=== PATIENT | female | born 1945 | race Caucasian/White ===

== ENCOUNTER 2024-05-18 14:36 | Emergency (ER) | payer MEDICARE, OTHER, SELFPAY ==
[2024-05-18 14:45] VITALS: BP 117/59; PULSE 77; RESP 16; TEMP 36.3; O2SAT 97; BMI 22.4
--- NOTE | 2024-05-18 17:04 | ED.BACK ---
HPI - Back Pain/Injury General Chief Complaint: Back Pain/Injury Stated Complaint: requesting mri for back Time Seen by Provider: 05/18/24 16:48 Source: patient History of Present Illness HPI Narrative: Patient is a 78-year-old female. Has had issues with low back/hip discomfort ever since she had 2 different traumas with the end of last year requiring surgery. She states she is weakness in her pelvis and she did fall a couple days ago. She has had increased discomfort in lower back since then. She has seen her primary doctor. Was on prednisone for short period of time. She stated that she did not think that prednisone was helping so she stopped taking the prednisone yesterday and overnight and today she was any increased pain. She did have x-rays after this fall a couple days ago but does not think that they were lumbar spine x-rays. No change in any urinary or bowel habits. No fevers. She was on tramadol that does not help her symptoms. She was told by her primary care doctor nurse to come to the emergency department for an MRI. Related Data Home Medications Medication Instructions Recorded Confirmed verapamil 180 mg tablet,extended 180 mg PO DAILY 05/12/24 05/17/24 release Previous Rx's Medication Instructions Recorded tramadol 50 mg tablet 50 mg PO TID PRN pain #20 tabs 05/17/24 cyclobenzaprine 10 mg tablet 10 mg PO TID PRN muscle spasm #21 05/18/24 tabs hydrocodone 5 mg-acetaminophen 325 1 tab PO Q8H PRN pain #14 tabs 05/18/24 mg tablet Allergies Allergy/AdvReac Type Severity Reaction Status Date / Time nitroglycerin AdvReac Intermediate Verified 05/18/24 14:59 Review of Systems Review of Systems ROS Unobtainable: All systems reviewed & are unremarkable except as noted in HPI and below Patient History Social History Smoking Status: Never smoker Smoking Status: Never smoker Substance Use Type: does not use Exam Initial Vital Signs Initial Vital Signs: Vital Signs Temperature 97.4 F L 05/18/24 14:45 Pulse Rate 77 05/18/24 14:45 Respiratory Rate 16 05/18/24 14:45 Blood Pressure 117/59 L 05/18/24 14:45 Pulse Oximetry 97 05/18/24 14:45 Oxygen Delivery Method Room Air 05/18/24 14:45 Const General: cooperative, comfortable and No ill appearing [facility] Head: normal to inspection and normocephalic Resp Effort & Inspection: normal respiratory effort Cardio Rate: regular rate Neuro General: patient alert, patient awake and moves all extremities Extrem Other: No gross deformities Course Orders Ordered: ED Orders 05/18/24 16:44 Urine Culture Stat Urine Microscopic Stat 05/18/24 17:03 XR lumbar spine 2-3V Stat Discontinued Medications Ondansetron HCl (Ondansetron 4 Mg/2 Ml Inj) 4 mg IV NOW PRN PRN Reason: Nausea And Vomiting Ondansetron HCl (Ondansetron 4 Mg Odt) 4 mg SL NOW PRN PRN Reason: Nausea And Vomiting Vital Signs Vital signs: Vital Signs - 8 hr 05/18/24 14:45 Temperature 97.4 F L Pulse Rate 77 Respiratory Rate 16 Blood Pressure 117/59 L Pulse Oximetry 97 Oxygen Delivery Method Room Air MDM - Back Pain/Injury Lab Data Labs: Lab Results 05/18/24 Range/Units 16:44 Urine RBC None seen (0-5/HPF) Urine WBC 0-1/hpf (0-5/HPF) Ur Squamous Epith Cells None seen (0-5/HPF) Amorphous Sediment 2+ Urine Bacteria Many (>30) H (None) Ur Culture Indicated? Specimen cultured Vol Urine Centrifuged 10ml (spun) Urine Dip Bedside Urine Glucose Negative Bedside Urine Bilirubin + 1 Bedside Urine Ketone +/- 5 Urine Specific [place] 1.030 Bedside Urine Occult Blood - Negative Bedside Urine pH 5.5 Bedside Urine Protein +/- 15 Bedside Urine Urobilinogen - Negative Bedside Urine Nitrite - Negative Bedside Urine Leukocytes + 70 Esterase Imaging Data Lumbar spine x-ray: Radiologist's Impression: PROCEDURE: XR LUMBAR SPINE 2-3V INDICATIONS: LBP after fall TECHNIQUE: 3 views of the lumbar spine were acquired. COMPARISON: None. FINDINGS: Bones: 5 [id number] vertebrae are present. Levoconvex lumbar scoliosis. Bones are demineralized, limiting evaluation. No acute vertebral body compression fracture identified. Multilevel degenerative disc disease. Partially visualized hardware in the bilateral hips. Soft tissues: Overlying bowel gas pattern is normal. No suspicious soft tissue calcifications. IMPRESSION: No acute bony abnormality. If symptoms persist with conservative management, consider cross-sectional imaging such as CT or MRI. [facility] Narrative Medical decision making narrative: Lumbar spine x-ray today shows no acute pathology. Low suspicion for cauda equina/fracture/hematoma/abscess. Unfortunately unable to obtain an MRI on in the emergency department today. She most likely will need an MRI but this can be done as an outpatient through her primary doctor. Will give a prescription for muscle relaxers however the this does not help her symptoms she was stop taking them. We will also change her pain medication. She understands this can make her constipated so she will take stool softeners as needed. Follow-up with primary provider. She expressed understanding and agreement. Discharge Plan Departure Patient Disposition: Home Clinical Impression: Lumbar back pain Instructions: DI for Low Back Pain Activity Restrictions/Additional Instructions: You can walk as tolerated. Recommend that you continue with anti-inflammatories. Contact your primary care doctor for a discussion about the indications for more advanced imaging such as an MRI. Return to the emergency department for new symptoms. Prescriptions: New cyclobenzaprine 10 mg tablet 10 mg PO TID PRN (Reason: muscle spasm) Qty: 21 0RF hydrocodone-acetaminophen 5-325 mg tablet 1 tab PO Q8H PRN (Reason: pain) Qty: 14 0RF No Action verapamil 180 mg tablet extended release 180 mg PO DAILY tramadol 50 mg tablet 50 mg PO TID PRN (Reason: pain) Qty: 20 0RF Referrals: Felton Berry MD [Primary Care Provider] - Stand Alone Forms: Patient Portal/API
[2024-05-18 18:40] LABS: Amorphous Sediment Urine 2+; Bacteria Urine Many (>30); Culture Indicated Urine Specimen Cultured; RBC Urine None Seen (0-5/HPF); Squamous Epithelial Cell Urine None Seen (0-5/HPF); Urine Volume 10mL (spun); WBC Urine 0-1/HPF (0-5/HPF)
== END 2024-05-18 18:35 | disposition home or self-care (01) ==
PROVIDERS: Emergency Provider Emergency Medicine; PCP Family Medicine
DX: M54.50 Low back pain, unspecified (principal)
CPT/HCPCS: 72100; 81003; 81015; 87086; 99281; 99283

== ENCOUNTER → 2024-05-25 12:13 | Outpatient (CLI) | payer MEDICARE, OTHER, SELFPAY ==
--- NOTE | 2024-05-25 12:15 | DI.MRI.S_ITS ---
PROCEDURE: MR LUMBAR SPINE WO CON INDICATIONS: severe low back pain after a fall TECHNIQUE: Noncontrast sagittal T1 spin echo and T2 fast echo, sagittal STIR, and T2 fast spin echo through the lumbar spine. In cases with scoliosis, additional coronal T2 fast spin echo may be performed. COMPARISON: [facility], CR, XR LUMBAR SPINE 2-3V, 05/18/2024, 17:15. FINDINGS: Image quality: Diagnostic, with note made of motion artifact. Alignment and Curvature: [id number] levoconvex scoliotic curvature is noted. Minimal anterolisthesis can be seen at L5-S1. Bone Marrow: Marrow is of normal overall signal. No acute vertebral body compression fractures. Spinal Cord: Conus medullaris terminates at the L1-L2 level. Visualized cord demonstrates normal signal and size. Paraspinous Soft Tissues: No paravertebral masses. T12-L1: Mild loss of disc height is seen. Loss of disc signal is seen. Mild generalized disc bulge is seen. There is a superimposed central disc protrusion. Mild facet joint hypertrophy is seen. Mild bilateral neural foraminal narrowing is seen. No significant central canal narrowing is seen. L1-L2: The disc height is well-preserved. Loss of disc signal is seen at this level. Mild generalized disc bulge is seen. Mild facet joint hypertrophy is seen. There is mild right-sided and no left-sided neural foraminal narrowing. No central canal narrowing is seen. L2-L3: The disc height is well-preserved. Loss of disc signal is seen at this level. Mild generalized disc bulge is seen. There is a superimposed central disc protrusion. Mild facet joint hypertrophy is seen. There is moderate right-sided and no left-sided neural foraminal narrowing. No significant central canal narrowing is seen. L3-L4: The disc height is well-preserved. Loss of disc signal is seen at this level. Mild to moderate disc bulge is seen, which is eccentric to the right. Moderate facet joint hypertrophy is seen. Mild to moderate bilateral neural foraminal narrowing can be seen. Mild central canal narrowing is seen. L4-L5: The disc height is well-preserved. Loss of disc signal is seen at this level. Mild to moderate disc bulge is seen. Moderate facet joint hypertrophy is seen. Mild to moderate bilateral neural foraminal narrowing can be seen. No significant central canal narrowing is seen. L5-S1: Mild loss of disc height is seen. Loss of disc signal is seen. Mild generalized disc bulge is seen. There is moderate right-sided and moderate to prominent left-sided facet hypertrophy. There is moderate to severe left-sided neural foraminal narrowing, with a degree of compression upon the exiting left L5 nerve root. No significant right-sided neural foraminal narrowing is seen. Minimal central canal narrowing is seen. IMPRESSION: Multiple levels of lumbar spine degenerative change can be seen, which are overall worst at L5-S1, where there is moderate to severe left-sided neural foraminal narrowing, with associated compression upon the exiting left L5 nerve root. [id number] levoconvex lumbar scoliosis. Dictated by: Fercho Raymond M.D. on 05/25/2024 at 12:25 Approved by: Fercho Raymond M.D. on 05/25/2024 at 12:30
== END ==
PROVIDERS: PCP Family Medicine; Referring Provider Family Medicine; Visit Provider Family Medicine
DX: M47.816 Spondylosis without myelopathy or radiculopathy, lumbar region (principal); M47.817 Spondylosis without myelopathy or radiculopathy, lumbosacral region; M48.07 Spinal stenosis, lumbosacral region; M48.061 Spinal stenosis, lumbar region without neurogenic claudication; M41.9 Scoliosis, unspecified; M54.50 Low back pain, unspecified; Z87.81 Personal history of (healed) traumatic fracture
CPT/HCPCS: 72148